=== PATIENT | female | born 1970 ===

== ENCOUNTER 2021-01-28 21:09 | Emergency (ER) | payer SELFPAY ==
[2021-01-28 21:44] LABS: Basophils % (Auto) 0.7 % (0.0-1.8); Eosinophils # (Auto) 0.2 K/mm3 (0.0-0.4); Eosinophils % (Auto) 2.9 % (0.0-4.3); Hematocrit 24.8 % (30.3-42.9); Hemoglobin 7.4 gm/dl (10.1-14.3); Lymphocytes # (Auto) 1.5 K/mm3 (1.2-5.4); Lymphocytes % (Auto) 25.9 % (13.4-35.0); Mean Corpuscular HGB Conc 30 % (30-34); Monocytes # (Auto) 0.3 K/mm3 (0.0-0.8); Monocytes % (Auto) 5.8 % (0.0-7.3); Platelet Count 172 K/mm3 (140-440); Red Blood Count 3.76 M/mm3 (3.65-5.03)
[2021-01-28 21:45] LABS: Mean Corpuscular Volume 66 fl (79-97); Red Cell Distribution Width 23.3 % (13.2-15.2)
[2021-01-29 10:20] VITALS: BP 102/34
--- NOTE | 2021-01-29 11:48 | Emergency Department Report ---
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 50-year-old female with a known history of uterine fibroids and an anemia secondary to heavy vaginal bleeding presents to the ER today for low hemoglobin. Patient states that she went in for routine checkup at her primary care doctor's office a couple days ago and had some blood work done. She states that she was notified by her primary care doctor yesterday that her hemoglobin was "low". She states she does not recall them telling her how low it was but she stated that they did tell her it is lowest that it has ever been and recommend that she comes to the ER. Patient states that she is currently taking iron osorio pplements. Her last menstrual cycle was January 15 through January 19. She states that she has been feeling palpitations and fatigue and having some headache but otherwise no syncope, near syncope, chest pain, abdominal pain or any other symptoms. She states that she is never had a blood transfusion before. Complaint: Low hemoglobin -: days(s) (1) - Related Data Allergies Allergy/AdvReac Type Severity Reaction Status Date / Time No Known Allergies Allergy Unverified 01/28/21 21:30 ED Review of Systems ROS: Stated complaint: LOW HGB Other details as noted in HPI Comment: All other systems reviewed and negative Constitutional: malaise. denies: chills, fever Eyes: denies: eye pain, eye discharge, vision change ENT: denies: ear pain, throat pain, dental pain, hearing loss, epistaxis, congestion Respiratory: denies: cough, shortness of breath, SOB with exertion, SOB at rest, stridor, wheezing Cardiovascular: denies: chest pain, palpitations, dyspnea on exertion, orthopnea, edema, syncope, paroxysmal nocturnal dyspnea Gastrointestinal: denies: abdominal pain, nausea, diarrhea, constipation, hematemesis, melena Genitourinary: denies: urgency, dysuria, discharge Musculoskeletal: denies: back pain, joint swelling, arthralgia Skin: denies: rash, lesions, change in color, change in hair/nails, pruritus Neurological: headache. denies: weakness, numbness, paresthesias, confusion, abnormal gait, vertigo Psychiatric: denies: anxiety, depression, auditory hallucinations, visual hallucinations, homicidal thoughts, suicidal thoughts Hematological/Lymphatic: denies: easy bleeding, easy bruising ED Past Medical Hx - Past Medical History Previous Medical History?: Yes Additional medical history: low iron levels - Surgical History Past Surgical History?: No - Social History Smoking Status: Never Smoker Substance Use Type: None ED Physical Exam - General Limitations: Language Barrier General appearance: alert, in no apparent distress - Head Head exam: Present: atraumatic, normocephalic, normal inspection - Eye Eye exam: Present: normal appearance, PERRL, EOMI Pupils: Present: normal accommodation - ENT ENT exam: Present: normal exam, mucous membranes moist - Neck Neck exam: Present: normal inspection, full ROM. Absent: meningismus - Respiratory Respiratory exam: Present: normal lung sounds bilaterally. Absent: respiratory distress - Cardiovascular Cardiovascular Exam: Present: regular rate, normal rhythm, normal heart sounds - GI/Abdominal GI/Abdominal exam: Present: soft. Absent: distended, tenderness, guarding, rebound - Neurological Exam Neurological exam: Present: alert, oriented X3, CN II-XII intact, normal gait - Psychiatric Psychiatric exam: Present: normal affect, normal mood - Skin Skin exam: Present: intact ED Course Vital Signs 01/28/21 01/29/21 21:31 10:01 Temperature 99.0 F 98.3 F Pulse Rate 79 59 L Respiratory 18 18 Rate Blood Pressure 122/46 102/34 O2 Sat by Pulse 100 100 Oximetry ED Medical Decision Making - Lab Data Result diagrams: 01/29/21 12:19 01/29/21 12:19 - Medical Decision Making Pt arrive to ED about 12hrs prior to my shift and me seeing her. Her CBC which was drawn at the time of her arrival and showed a hemoglobin/hematocrit of 24.8/7.4. Repeat CBC showed that hemoglobin/hematocrit is improving. Remainder of her labs are unremarkable. Patient is well-appearing, not toxic and not in any acute distress. She is not currently actively bleeding. She is neurologically intact with a normal gait. Her Vital signs are stable. At this time there is no indication for any additional testing, emergent spe cialist consult, or admission. Discussed lab results with patient, recommend that she continues taking the iron supplements and informed her that it is important that she keeps her appointment with the [employer] for further evaluation and treatment of her fibroids. Patient expressed understanding of instructions and agree with plan. Patient was stable at time of discharge. Critical care attestation.: If time is entered above; I have spent that time in minutes in the direct care of this critically ill patient, excluding procedure time. ED Disposition Clinical Impression: Anemia, History of heavy periods, Uterine fibroid Disposition: TO HOME OR SELFCARE Is pt being admited?: No Does the pt Need Aspirin: No Condition: Stable Instructions: Iron Deficiency Anemia, Pediatric, Uterine Fibroids, [id number] Additional Instructions: I recommend that you continue taking your iron supplements. Keep your appointment with the [facility] for February 03. Follow-up with your primary care doctor. Referrals: PRIMARY MD ROSIE [Primary Care Provider] - 3-5 Days Time of Disposition: 13:23
[2021-01-29 12:46] LABS: Mean Corpuscular HGB Conc 30 % (30-34); Platelet Count 159 K/mm3 (140-440)
[2021-01-29 12:51] LABS: Hematocrit 26.7 % (30.3-42.9); Hemoglobin 7.9 gm/dl (10.1-14.3); Mean Corpuscular Volume 67 fl (79-97); Red Cell Distribution Width 25.9 % (13.2-15.2)
[2021-01-29 13:05] LABS: Alanine Aminotransferase 16 units/L (7-56); Albumin 4.4 g/dL (3.9-5); Blood Urea Nitrogen 11 mg/dL (7-17); Calcium 8.9 mg/dL (8.4-10.2); Hemolysis Index 1
[2021-01-29 13:09] LABS: BUN/Creatinine Ratio 18
[2021-01-29 15:22] LABS: Total Cells Counted 100
[2021-01-29 15:23] LABS: Anisocytosis 2+; Hypochromasia 2+; Platelet Estimate Consistent w Auto; Stomatocytes 1+
== END 2021-01-29 13:33 | disposition home or self-care (01) ==
LOC: ED 21:09
DX: D64.9 Anemia, unspecified (principal); D25.9 Leiomyoma of uterus, unspecified; Z79.899 Other long term (current) drug therapy
CPT/HCPCS: 36415; 80053; 85007; 85025; 99283